=== PATIENT | female | born 1975 | race Caucasian/White ===

== ENCOUNTER 2017-04-07 05:59 | Emergency (ER) | payer SELFPAY ==
[~2017-04-07] VITALS: Ht 165.1 cm; Wt 102.7 kg
[~2017-04-07 05:59] MED LIST: LORT5TAB PO; PENI500T PO; Z.0.NO CURRENT MEDS
[2017-04-07 06:12] VITALS: BP 137/84; PULSE 85; RESP 18; TEMP 97.6; O2SAT 96
[2017-04-07] MEDS ORDERED: SODIUM CHLOR 0.9% 1000 ML INJ 1,000 ML IV SCH (06:20)
--- NOTE | 2017-04-07 06:29 | PD ---
HPI Chief Complaint: Abdominal Pain Time Seen by Provider: 06:20 Travel History International Travel<30 days: No Contact w/Intl Traveler<30days: No Traveled to known affect area: No History of Present Illness HPI The patient is a 41-year-old female that complains of midline epigastric pain since 3:30 this morning. She denies any nausea or vomiting. She has not been belching. She took some Mylanta without relief. She states she cannot be , she has had a tubal ligation. She denies any melanotic or bloody stools. She denies any fever area. She denies any history of ulcer. She denies any cough. She is not on any medications. She does not drink alcohol. She quit smoking on the eighth of last month, prior to that she smoked one pack a day. Her pain is an 8/10 and a burning type pain. PFSH Past Medical History Medical History: Denies Significant Hx Diminished Hearing: No Tetanus Vaccination: Unknown Influenza Vaccination: No ?: Not LMP: 03/20/17 : 3 Para: 3 Miscarriage: 0 : 0 Tubal Ligation: Yes Past Surgical History Gynecologic Surgery: Yes (TUBAL LIGATION) Social History Alcohol Use: No Tobacco Use: No (QUIT MARCH 23, 2017) Substance Use: No Allergies-Medications (Allergen,Severity, Reaction): Coded Allergies: No Known Allergies (Verified , 04/07/17) Reported Meds & Prescriptions Reported Meds & Active Scripts Active No Active Prescriptions or Reported Medications Review of Systems Except as stated in HPI: all other systems reviewed are Neg Physical Exam Narrative GENERAL: The patient is alert, obese, oriented 3 in slight apparent distress with her midline epigastric pain. Her vital signs are normal. SKIN: Focused skin assessment warm/dry. HEAD: Atraumatic. Normocephalic. EYES: Pupils equal and round. No scleral icterus. No injection or drainage. ENT: No nasal bleeding or discharge. Mucous membranes pink and moist. NECK: Trachea midline. No JVD. CARDIOVASCULAR: Regular rate and rhythm. No murmur appreciated. RESPIRATORY: No accessory muscle use. Clear to auscultation. Breath sounds equal bilaterally. GASTROINTESTINAL: Abdomen soft, with tenderness to direct palpation in the midline epigastrium, nondistended. Hepatic and splenic margins not palpable. No guarding or rebound is present. There is minimal right upper quadrant tenderness and Brown sign is negative. There is no right lower quadrant tenderness or guarding. MUSCULOSKELETAL: No obvious deformities. No clubbing. No cyanosis. No edema. NEUROLOGICAL: Awake and alert. No obvious cranial nerve deficits. Motor grossly within normal limits. Normal speech. PSYCHIATRIC: Appropriate mood and affect; insight and judgment normal. Data Data Last Documented VS Vital Signs Date Time Temp Pulse Resp B/P Pulse Ox O2 Delivery O2 Flow Rate FiO2 04/07/17 06:55 97.5 65 16 151/94 98 Room Air Orders Complete Blood Count With Diff (04/07/17 06:20) Comprehensive Metabolic Panel (04/07/17 06:20) Lipase (04/07/17 06:20) Urinalysis - C+S If Indicated (04/07/17 06:20) Iv Access Insert/Monitor (04/07/17 06:20) Ecg Monitoring (04/07/17 06:20) Oximetry (04/07/17 06:20) Morphine Inj (Morphine Inj) (04/07/17 06:30) Ondansetron Inj (Zofran Inj) (04/07/17 06:30) Pantoprazole Inj (Protonix Inj) (04/07/17 06:30) Sodium Chlor 0.9% 1000 Ml Inj (Ns 1000 M (04/07/17 06:20) Sodium Chloride 0.9% Flush (Ns Flush) (04/07/17 06:30) Electrocardiogram (04/07/17 06:20) Famotidine Inj (Pepcid Inj) (04/07/17 06:30) Al-Mag Hy-Si 40-40-4 Mg/Ml Liq (Mag-Al P (04/07/17 06:30) Lidocaine 2% Viscous (Xylocaine 2% Visco (04/07/17 06:30) Labs Laboratory Tests Test 04/07/17 06:20 White Blood Count 7.9 TH/MM3 Red Blood Count 5.10 MIL/MM3 Hemoglobin 12.8 GM/DL Hematocrit 40.2 % Mean Corpuscular Volume 78.7 FL Mean Corpuscular Hemoglobin 25.2 PG Mean Corpuscular Hemoglobin 32.0 % Concent Red Cell Distribution Width 17.4 % Platelet Count 396 TH/MM3 Mean Platelet Volume 9.1 FL Neutrophils (%) (Auto) 57.9 % Lymphocytes (%) (Auto) 30.6 % Monocytes (%) (Auto) 7.1 % Eosinophils (%) (Auto) 2.1 % Basophils (%) (Auto) 2.3 % Neutrophils # (Auto) 4.5 TH/MM3 Lymphocytes # (Auto) 2.4 TH/MM3 Monocytes # (Auto) 0.6 TH/MM3 Eosinophils # (Auto) 0.2 TH/MM3 Basophils # (Auto) 0.2 TH/MM3 CBC Comment DIFF FINAL Differential Comment Sodium Level 141 MEQ/L Potassium Level 3.9 MEQ/L Chloride Level 107 MEQ/L Carbon Dioxide Level 27.3 MEQ/L Anion Gap 7 MEQ/L Blood Urea Nitrogen 21 MG/DL Creatinine 0.99 MG/DL Estimat Glomerular Filtration 61 ML/MIN Rate Random Glucose 102 MG/DL Calcium Level 8.5 MG/DL Total Bilirubin 0.2 MG/DL Aspartate Amino Transf 14 U/L (AST/SGOT) Alanine Aminotransferase 26 U/L (ALT/SGPT) Alkaline Phosphatase 66 U/L Total Protein 7.1 GM/DL Albumin 3.1 GM/DL Lipase 220 U/L MDM Medical Decision Making Medical Screen Exam Complete: Yes Emergency Medical Condition: Yes Medical Record Reviewed: Yes Interpretation(s) The EKG shows sinus rhythm with a rate of [address] elevation or depression. The CBC is normal. The complete metabolic profile shows a BUN of 21, GFR of 61 and albumen 3.1 but is otherwise normal. Differential Diagnosis GERD, ulcer pain, cholecystitis, colitis, pyelonephritis, electrolyte disorder, anemia, renal insufficiency, pancreatitis Narrative Course It is now 0704 and the patient feels much better. Her pain is now a 4/10. Impression: GERD. It was explained to the patient that cholelithiasis with colic, ulcer pain and even colitis can cause similar type pains at this time the most likely diagnosis is GERD, the pain has markedly improved with sitting up position, Pepcid, Protonix and a GI cocktail. Diagnosis Primary Impression: GERD (gastroesophageal reflux disease) Additional Instructions: As we discussed, sitting up will help keep the acid in her stomach and away from the esophagus. Avoid belching. Weight loss often helps and avoid tight constricting clothes. The Zantac is twice daily and the Prilosec is once daily. Both of these worked to reduce acid production of the stomach. Follow- up with her primary care physician next week. The returning of severe pain, especially in the right upper quadrant suggest gallbladder disease. Alcohol, nonsteroidal anti-inflammatory drugs and aspirin may irritate the stomach as well. Med/Other Pt SpecificInfo: Prescription(s) given Scripts Omeprazole 20 Mg Tab20 Mg PO DAILY #30 TAB Ref 0 Prov:Patrick Gill MD 04/07/17 Ranitidine (Zantac)150 Mg Met199 Mg PO BID #60 TAB Ref 0 Prov:Patrick Gill MD 04/07/17 Disposition: 01 DISCHARGE HOME Condition: Stable Patrick Gill MD Apr 07, 2017 06:29
[2017-04-07] MEDS ORDERED: ALUMINUM/MAGNESIUM/SIMETH 30 ML CUP PO ONE (06:30)
[2017-04-07] MEDS ORDERED: SODIUM CHLORIDE 0.9% FLUSH 10 ML FLUSH IV FLUSH PRN (06:30)
[2017-04-07] MEDS ORDERED: LIDOCAINE VISCOUS 2% SOLN 15 ML UDC PO ONE (06:30)
[2017-04-07] MEDS ORDERED: PANTOPRAZOLE SODIUM 40 MG VIAL IVP ONE (06:30)
[2017-04-07] MEDS ORDERED: MORPHINE SULFATE 4 MG/ML INJ IV PUSH ONE (06:30)
[2017-04-07] MEDS ORDERED: ONDANSETRON HCL 4 MG/2 ML VIAL IVP ONE (06:30)
[2017-04-07] MEDS ORDERED: FAMOTIDINE 20 MG/2 ML VIAL IV PUSH ONE (06:30)
[2017-04-07 06:38] LABS: AUTOMATED NEUTROPHIL # 4.5 TH/MM3 (1.8-7.7); BASOPHIL # 0.2 TH/MM3 (0-0.2); BASOPHIL % 2.3 % (0.0-2.0); EOSINOPHIL # 0.2 TH/MM3 (0-0.4); EOSINOPHIL % 2.1 % (0.0-4.0); HEMATOCRIT 40.2 % (35.0-46.0); HEMO FLAGS DIFF FINAL; LYMPH % 30.6 % (9.0-44.0); LYMPHOCYTE # 2.4 TH/MM3 (1.0-4.8); MEAN CELL VOLUME 78.7 FL (80.0-100.0); MEAN CORPUSCULAR HEMOGLOBIN 25.2 PG (27.0-34.0); MONO % 7.1 % (0.0-8.0); NEUT % 57.9 % (16.0-70.0); PLATELET COUNT 396 TH/MM3 (150-450); RED CELL DISTRIBUTION WIDTH 17.4 % (11.6-17.2); WHITE BLOOD COUNT 7.9 TH/MM3 (4.0-11.0)
[2017-04-07 06:41] LABS: CHLORIDE 107 MEQ/L (98-107); POTASSIUM 3.9 MEQ/L (3.5-5.1); SODIUM (NA) 141 MEQ/L (136-145)
[2017-04-07 06:43] VITALS: BP 146/102; PULSE 69; RESP 16; O2SAT 99
[2017-04-07 06:44] LABS: ANION GAP 7 MEQ/L (5-15); BICARBONATE 27.3 MEQ/L (21.0-32.0); BLOOD UREA NITROGEN 21 MG/DL (7-18)
[2017-04-07 06:47] LABS: ALT (GPT) 26 U/L (10-53); AST (GOT) 14 U/L (15-37); GLOMERULAR FILTRATION RATE 61 ML/MIN (>89)
[2017-04-07 06:48] LABS: TOTAL BILIRUBIN ADULT 0.2 MG/DL (0.2-1.0)
[2017-04-07 06:50] LABS: ALKALINE PHOSPHATASE 66 U/L (45-117)
[2017-04-07 06:55] VITALS: BP 151/94; PULSE 65; RESP 16; TEMP 97.5; O2SAT 98
[2017-04-07] MEDS ORDERED: OMEP20TA PO (07:07)
[2017-04-07] MEDS ORDERED: ZANT150T2 PO (07:07)
--- NOTE | 2017-04-07 14:26 | EKG ---
Date Performed: 04/07/2017 Time Performed: 06:06:48 PTAGE: 41 years EKG: Sinus rhythm rSr'(V1) - probable normal variant Low QRS voltages in precordial leads Abnormal ECG NO PREVIOUS TRACING DOCTOR: Eber Velez Interpretating Date/Time 04/07/2017 14:24:58
== END 2017-04-07 07:45 | disposition home or self-care (01) ==
LOC: PHED 05:59
DX: K21.9 Gastro-esophageal reflux disease without esophagitis (principal); R94.31 Abnormal electrocardiogram [ECG] [EKG]; Z87.891 Personal history of nicotine dependence
CPT/HCPCS: 80053; 83690; 85025; 93005; 96361; 96374; 96375; 99284; C9113; J2270; J2405; J7030

== ENCOUNTER 2017-09-19 13:30 | Emergency (ER) | payer SELFPAY ==
[~2017-09-19] VITALS: Ht 165.1 cm; Wt 101.9 kg
[~2017-09-19 13:30] MED LIST changes: -LORT5TAB PO; +OMEP20TA93 PO; -PENI500T PO; -Z.0.NO CURRENT MEDS; +ZANT150T2 PO
[2017-09-19 13:34] VITALS: BP 160/76; PULSE 62; RESP 18; TEMP 97.6; O2SAT 100
[2017-09-19] MEDS ORDERED: SODIUM CHLOR 0.9% 1000 ML INJ 1,000 ML IV ONE (14:15)
[2017-09-19] MEDS ORDERED: KETOROLAC TROMETHAMINE 30 MG/ML (IVP) VIAL IV PUSH ONE (14:15)
[2017-09-19 14:18] VITALS: O2SAT 97
[2017-09-19 14:30] LABS: AUTOMATED NEUTROPHIL # 4.7 TH/MM3 (1.8-7.7); BASOPHIL # 0.1 TH/MM3 (0-0.2); BASOPHIL % 1.2 % (0.0-2.0); EOSINOPHIL # 0.1 TH/MM3 (0-0.4); EOSINOPHIL % 0.9 % (0.0-4.0); HEMATOCRIT 37.3 % (35.0-46.0); LYMPH % 24.1 % (9.0-44.0); LYMPHOCYTE # 1.7 TH/MM3 (1.0-4.8); MEAN CELL VOLUME 72.8 FL (80.0-100.0); MEAN CORPUSCULAR HEMOGLOBIN 23.3 PG (27.0-34.0); MONO % 3.9 % (0.0-8.0); NEUT % 69.9 % (16.0-70.0); PLATELET COUNT 438 TH/MM3 (150-450); RED BLOOD COUNT 5.13 MIL/MM3 (4.00-5.30); RED CELL DISTRIBUTION WIDTH 15.3 % (11.6-17.2); WHITE BLOOD COUNT 6.9 TH/MM3 (4.0-11.0)
[2017-09-19 14:32] LABS: BLOOD, URINE NEG (NEG); GLUCOSE,URINE NEG (NEG); KETONE, URINE NEG (NEG); NITRITE,URINE NEG (NEG); PH, URINE 5.5 (5.0-8.5)
[2017-09-19 14:35] LABS: HEMO FLAGS AUTO DIFF
--- NOTE | 2017-09-19 14:42 | PD ---
HPI Chief Complaint: Abdominal Pain Time Seen by Provider: 13:51 Travel History International Travel<30 days: No Contact w/Intl Traveler<30days: No Traveled to known affect area: No History of Present Illness HPI 41-year-old female presents with right upper quadrant abdominal pain that is been present for the past couple of days. She denies other associated symptoms. She states she has not had recurrent history of this. She states she has not had intercourse for a year and denies . She feels worse when she moves around. She denies other specific modifying factors. Quality is sharp. Severity is moderate. She denies other specific concurrent complaints PFSH Past Medical History Medical History: Denies Significant Hx Diminished Hearing: No Tetanus Vaccination: > 5 Years Influenza Vaccination: No ?: Not LMP: "last month, irregular" : 3 Para: 3 Miscarriage: 0 : 0 Tubal Ligation: Yes Past Surgical History Gynecologic Surgery: Yes (TUBAL LIGATION) Social History Alcohol Use: No Tobacco Use: No (QUIT MARCH 23, 2017) Substance Use: No Allergies-Medications (Allergen,Severity, Reaction): Coded Allergies: No Known Allergies (Verified Adverse Reaction, Unknown, 09/19/17) Reported Meds & Prescriptions Reported Meds & Active Scripts Active No Active Prescriptions or Reported Medications Review of Systems Except as stated in HPI: all other systems reviewed are Neg Physical Exam Narrative GENERAL: Well-nourished, well-developed patient. SKIN: Warm and dry. HEAD: Normocephalic and atraumatic. EYES: No injection or drainage. ENT: No nasal drainage noted. NECK: Supple, trachea midline. CARDIOVASCULAR: Regular rate and rhythm RESPIRATORY: No increased effort. No accessory muscle use. GASTROINTESTINAL: Abdomen soft, ttp in upper abdomen, nondistended. no rebound EXTREMITIES: No edema. BACK: Nontender without obvious deformity, no cvat. NEUROLOGICAL: Awake and alert. Motor and sensory grossly within normal limits. Normal speech. Data Data Last Documented VS Vital Signs Date Time Temp Pulse Resp B/P (MAP) Pulse Ox O2 Delivery O2 Flow Rate FiO2 09/19/17 16:16 09/19/17 15:59 60 16 99 Room Air 09/19/17 13:34 97.6 Orders Orders Urinalysis - C+S If Indicated (09/19/17 13:52) Ed Urine Pregnancytest Poc (09/19/17 13:52) Complete Blood Count With Diff (09/19/17 14:10) Comprehensive Metabolic Panel (09/19/17 14:10) Lipase (09/19/17 14:10) Ct Abd/Pel W/O Iv Contrast (09/19/17 ) Iv Access Insert/Monitor (09/19/17 14:10) Oximetry (09/19/17 14:10) Ketorolac Inj (Toradol Inj) (09/19/17 14:15) Sodium Chlor 0.9% 1000 Ml Inj (Ns 1000 M (09/19/17 14:15) Urine Culture (09/19/17 14:25) Ed Discharge Order (09/19/17 15:52) Labs Laboratory Tests Test 09/19/17 14:25 White Blood Count 6.9 TH/MM3 Red Blood Count 5.13 MIL/MM3 Hemoglobin 11.9 GM/DL Hematocrit 37.3 % Mean Corpuscular Volume 72.8 FL Mean Corpuscular Hemoglobin 23.3 PG Mean Corpuscular Hemoglobin Concent 32.0 % Red Cell Distribution Width 15.3 % Platelet Count 438 TH/MM3 Mean Platelet Volume 8.4 FL Neutrophils (%) (Auto) 69.9 % Lymphocytes (%) (Auto) 24.1 % Monocytes (%) (Auto) 3.9 % Eosinophils (%) (Auto) 0.9 % Basophils (%) (Auto) 1.2 % Neutrophils # (Auto) 4.7 TH/MM3 Lymphocytes # (Auto) 1.7 TH/MM3 Monocytes # (Auto) 0.3 TH/MM3 Eosinophils # (Auto) 0.1 TH/MM3 Basophils # (Auto) 0.1 TH/MM3 CBC Comment AUTO DIFF Differential Comment AUTO DIFF CONFIRMED Urine Collection Type CLEAN CATCH Urine Color YELLOW Urine Turbidity SLIGHT Urine pH 5.5 Urine Specific [place] 1.027 Urine Protein NEG mg/dL Urine Glucose (UA) NEG mg/dL Urine Ketones NEG mg/dL Urine Occult Blood NEG Urine Nitrite NEG Urine Bilirubin NEG Urine Leukocyte Esterase NEG Urine RBC 0-3 /hpf Urine WBC 0-2 /hpf Urine Squamous Epithelial Cells > 8 /hpf Urine Amorphous Sediment FEW Urine Bacteria MOD /hpf Microscopic Urinalysis Comment CULTURE INDICATED Urine Collection Time 1425 Blood Urea Nitrogen 13 MG/DL Creatinine 0.95 MG/DL Random Glucose 100 MG/DL Total Protein 7.9 GM/DL Albumin 3.5 GM/DL Calcium Level 8.6 MG/DL Alkaline Phosphatase 71 U/L Aspartate Amino Transf (AST/SGOT) 10 U/L Alanine Aminotransferase (ALT/SGPT) 21 U/L Total Bilirubin 0.3 MG/DL Sodium Level 137 MEQ/L Potassium Level 3.9 MEQ/L Chloride Level 104 MEQ/L Carbon Dioxide Level 23.7 MEQ/L Anion Gap 9 MEQ/L Estimat Glomerular Filtration Rate 64 ML/MIN Lipase 142 U/L MDM Medical Decision Making Medical Screen Exam Complete: Yes Emergency Medical Condition: Yes Medical Record Reviewed: Yes ([facility] confirmed) Interpretation(s) CBC & BMP Diagram 09/19/17 14:25 Total Protein 7.9, Albumin 3.5, Calcium Level 8.6, Alkaline Phosphatase 71, Aspartate Amino Transf (AST/SGOT) 10 L, Alanine Aminotransferase (ALT/SGPT) 21, Total Bilirubin 0.3 Last 24 hours Impressions Abdomen/Pelvis CT 09/19/17 0000 Signed Impressions: Service Date/Time: Tuesday, September 19, 2017 14:53 - CONCLUSION: 1. The uterus is enlarged with 10 cm masslike area in the body and fundus representing an endometrial myometrial mass. The most common etiology would be a uterine leiomyoma. 2. No other significant abnormality is identified in the abdomen or pelvis. Derrick Carpenter MD Differential Diagnosis Kidney stone, musculoskeletal, pancreatitis, gastritis Narrative Course Will check blood work, urinalysis, CT scan abdomen pelvis and dose with Toradol , IV fluids and reevaluate ED workup shows likely fibroid on CT which is likely incidental as patient is not having significant pain over this area, patient given copy for follow-up, patient has no UTI symptoms so Will follow culture, Patient denies any new complaints, all questions answered. Patient knows that follow up is incumbent on them and to return to the emergency room immediately if new or worsening symptoms develop. Patient given strict return precautions, vitals reviewed and are normal, agrees to further workup as an outpatient. Diagnosis Primary Impression: Abdominal pain Qualified Codes: R10.9 - Unspecified abdominal pain Patient Instructions: General Instructions Additional Instructions: tylenol as needed, follow with primary this week, return as needed Med/Other Pt SpecificInfo: No Change to Meds Scripts No Active Prescriptions or Reported Meds Disposition: DISCHARGE HOME Condition: Stable Kamila Oseguera MD Sep 19, 2017 14:42
[2017-09-19 14:44] LABS: CHLORIDE 104 MEQ/L (98-107); METHOD OF COLLECTION CLEAN CATCH; POTASSIUM 3.9 MEQ/L (3.5-5.1); RBC, URINE 0-3 /hpf (0-3); SODIUM (NA) 137 MEQ/L (136-145); URINE COLOR YELLOW (YELLW/STRAW); WBC, URINE 0-2 /hpf (0-5)
[2017-09-19 14:45] LABS: BACTERIA, URINE MOD /hpf; COMMENT (UR) CULTURE INDICATED; COMMENT2 (UR) MUCOUS PRESENT; CULTURE IF INDICATED CULTURE INDICATED; SQUAMOUS EPITHELIAL CELL URINE > 8 /hpf (0-5)
[2017-09-19 14:47] LABS: ANION GAP 9 MEQ/L (5-15); BICARBONATE 23.7 MEQ/L (21.0-32.0)
[2017-09-19 14:48] LABS: BLOOD UREA NITROGEN 13 MG/DL (7-18)
[2017-09-19 14:50] LABS: ALT (GPT) 21 U/L (10-53); AST (GOT) 10 U/L (15-37); GLOMERULAR FILTRATION RATE 64 ML/MIN (>89)
[2017-09-19 14:52] LABS: TOTAL BILIRUBIN ADULT 0.3 MG/DL (0.2-1.0)
[2017-09-19 14:53] LABS: ALKALINE PHOSPHATASE 71 U/L (45-117)
[2017-09-19 15:24] LABS: SCAN/DIFF AUTO DIFF CONFIRMED
--- NOTE | 2017-09-19 15:29 | RADRPT ---
EXAM DATE/TIME: 09/19/2017 14:53 [facility] COMPARISON: No previous studies available for comparison. INDICATIONS : Bilateral flank pain. ORAL CONTRAST: No oral contrast ingested. RADIATION DOSE: 23.97 CTDIvol (mGy) MEDICAL HISTORY : None SURGICAL HISTORY : Tubal ligation. ENCOUNTER: Initial ACUITY: 3 days PAIN SCALE: 4/10 LOCATION: Bilateral flank TECHNIQUE: Volumetric scanning of the abdomen and pelvis was performed. Using automated exposure control and ad justment of the mA and/or kV according to patient size, radiation dose was kept as low as reasonably achievable to obtain optimal diagnostic quality images. DICOM format image data is available electro nically for review and comparison. FINDINGS: LOWER LUNGS: The visualized lower lungs are clear. LIVER: Homogeneous density without lesion. There is no dilation of the biliary tree. No calcified gallston es. SPLEEN: Normal size without lesion. PANCREAS: Within normal limits. KIDNEYS: Normal in size and shape. There is no mass, stone, or hydronephrosis. ADRENAL GLANDS: Within normal limits. VASCULAR: There is no aortic aneurysm. BOWEL/MESENTERY: The stomach, small bowel, and colon demonstrate no acute abnormality. There is no free intraperitone al air or fluid. There is sigmoid diverticulosis. ABDOMINAL WALL: Within normal limits. RETROPERITONEUM: There is no lymphadenopathy. BLADDER: No wall thickening or mass. REPRODUCTIVE: Uterus is significantly enlarged with heterogeneous masslike area in the body and fundus measuring ap proximately 10 cm. No adnexal abnormality is seen. INGUINAL: There is no lymphadenopathy or hernia. MUSCULOSKELETAL: No acute abnormality. CONCLUSION: 1. The uterus is enlarged with 10 cm masslike area in the body and fundus representing an endometrial myometrial mass. The most common etiology would be a uterine leiomyoma. 2. No other significant abnormality is identified in the abdomen or pelvis. Derrick Carpenter MD on September 19, 2017 at 15:14 Board Certified Radiologist. This report was verified electronically.
[2017-09-19 15:59] VITALS: BP 122/73; PULSE 60; RESP 16; O2SAT 99
== END 2017-09-19 16:17 | disposition home or self-care (01) ==
LOC: PHED 13:30
DX: R10.11 Right upper quadrant pain (principal)
CPT/HCPCS: 74176; 80053; 81001; 83690; 84703; 85025; 87086; 96361; 96374; 99285; J1885; J7030